=== PATIENT | female | born 1965 | race African-American/Black ===

== ENCOUNTER 2024-05-04 16:32 | Emergency (ER) | payer MEDICAID, OTHER ==
[~2024-05-04] VITALS: Ht 162.6 cm; Wt 65.0 kg
[2024-05-04 17:58] VITALS: O2SAT 97
[2024-05-04 18:01] LABS: BASOPHILS % 0.1 % (0.0-2.0); EOSINOPHILS % 1.7 % (0.0-5.0); HEMATOCRIT. 39.6 % (36.0-48.0); HEMOGLOBIN. 12.7 g/dL (12.0-16.0); LYMPHOCYTES % 13.5 % (20.0-50.0); MEAN CORPUSCULAR HEMOGLOBIN 27.4 pg (28.0-32.0); MEAN CORPUSCULAR HGB CONC 32.1 g/dL (31.0-37.0); MEAN CORPUSCULAR VOLUME 85.2 fL (81.0-99.0); MEAN PLATELET VOLUME 8.3 fl (7.4-10.4); MONOCYTES % 9.9 % (2.0-8.0); NEUTROPHILS % 74.8 % (40.0-76.0); PLATELET 298 x1000/uL (130-400); RED BLOOD CELL COUNT 4.64 mill/uL (4.2-5.4); RED CELL DISTRIBUTION WIDTH 13.2 % (11.6-14.6); WHITE BLOOD COUNT 9.8 x1000/uL (4.5-11.0)
[2024-05-04 18:03] LABS: CHLORIDE 108 mEq/L (98-107); SODIUM 140 mEq/L (136-145)
[2024-05-04 18:04] LABS: CARBON DIOXIDE 24 mEq/L (21-32)
[2024-05-04 18:05] LABS: CALCIUM 9.3 mg/dL (8.7-10.4)
[2024-05-04 18:09] LABS: CREATININE 0.6 mg/dL (0.6-1.0); GLUCOSE 101 mg/dL (70-105); UREA NITROGEN BLOOD 8 mg/dL (9-23)
[2024-05-04 18:32] LABS: TROPONIN I HIGH SENSITIVITY < 4 ng/L (3.0-34)
[2024-05-04 18:37] LABS: ALANINE AMINOTRANSFERASE 15 IU/L (10-49); ASPARTATE AMINOTRANSFERASE 22 IU/L (<34); BILIRUBIN TOTAL 0.2 mg/dL (0.1-1.0); PROTEIN TOTAL 7.7 g/dL (6.0-8.3)
[2024-05-04 18:46] LABS: BILIRUBIN DIRECT < 0.1 mg/dL (<=3.0)
[2024-05-05 01:26] VITALS: BP 115/68; PULSE 76; RESP 18; TEMP 37.16964; O2SAT 98
== END 2024-05-05 01:27 | disposition home or self-care (01) ==
LOC: ER 16:32
DX: B34.9 Viral infection, unspecified (principal)
CPT/HCPCS: 36415; 71275; 80048; 80076; 84484; 85025; 85379; 93005; 93971; 99284; 99285